=== PATIENT | female | born 1940 | race Caucasian/White ===

== ENCOUNTER → 2017-01-17 | Outpatient (CLI) | payer MEDICARE, OTHER ==
[2017-01-17 14:05] LABS: HEMOGLOBIN 8.2 gm/dl (12.3-15.3)
== END ==
LOC: OPSV 13:24
DX: R22.0 Localized swelling, mass and lump, head (principal)
CPT/HCPCS: 36415; 36430; 85014; 85018; 86850; 86900; 86901; 86920; J7050; P9016

== ENCOUNTER → 2017-01-21 | Outpatient (CLI) | payer MEDICARE, OTHER | LOC: CT 11:16 | DX: R10.0 Acute abdomen (principal); K92.1 Melena; K57.90 Diverticulosis of intestine, part unspecified, without perforation or abscess without bleeding | CPT/HCPCS: J7050; Q9962 ==